=== PATIENT | male | born 2000 | race Caucasian/White ===

== ENCOUNTER 2019-03-13 04:54 | Emergency (ER) | payer OTHER ==
[~2019-03-13] VITALS: Ht 195.5 cm; Wt 72.5 kg
[2019-03-13] MEDS ORDERED: LACTATED RINGERS 1,000 ML IV ONE ×3 (05:04→06:09)
--- NOTE | 2019-03-13 05:10 | ED Abdominal Pain ---
General Chief Complaint: Abdominal/GI Problems Stated Complaint: N/V Source of Information: Patient Exam Limitations: No Limitations (MEGHA HARDEN) History of Present Illness Date Seen by Provider: Mar 13, 2019 Time Seen by Provider: 04:52 Initial Comments Patient presents to ER by private conveyance with chief complaint of moderate to severe abdominal pain all over, nausea and vomiting since 2:00 this morning. He believes that he has food poisoning. He ate chicken wings from [email or web address] at 8:30 last night. His brother also ate the same food but did not become ill. However the day before his brother had food poisoning and was vomiting and went to the doctor's office and got ondansetron. His brothers symptoms have since passed. The patient borrowed a tablet of ondansetron at 3:30 and said it did nothing for his nausea. He was not able to take anything for pain. He does not have any history of medical or surgical problems. He does not routinely take medicines. He says he has allergies to antibiotics but he cannot think of which ones they are right now. He had a bout of diarrhea on the way to the ER. (MEGHA HARDEN) Allergies and Home Medications Allergies Coded Allergies: No Allergy Information Available (Unverified , 03/13/19) pt vomiting, states antibiotics Home Medications Ondansetron 4 Mg Tab.rapdis, 4-8 MG PO Q6H PRN for NAUSEA/VOMITING Prescribed by: MEGHA HARDEN on 03/13/19 0607 Promethazine HCl 25 Mg Tablet, 25 MG PO Q6H PRN for NAUSEA/VOMITING Prescribed by: MEGHA HARDEN on 03/13/19 0607 Patient Home Medication List Home Medication List Reviewed: Yes (MEGHA HARDEN) Review of Systems Review of Systems Constitutional: chills; No diaphoresis; fever (subjective) EENTM: No Eye Pain, No Ear Pain Respiratory: Denies Cough, Denies Shortness of Air Cardiovascular: Denies Chest Pain, Denies Lightheadedness Gastrointestinal: See HPI, Abdominal Pain; Denies Constipated, Denies Diarrhea; Nausea, Vomiting Genitourinary: Denies Burning, Denies Discharge Musculoskeletal: No back pain Skin: No pruritus, No rash Psychiatric/Neurological: Denies Headache, Denies Numbness (MEGHA HARDEN) All Other Systems Reviewed Negative Unless Noted: Yes (MEGHA HARDEN) Past Qxjdoru-Eafvub-Jbbdcn Hx Patient Social History Alcohol Use: Denies Use Recreational Drug Use: No Smoking Status: Never a Smoker Recent Foreign Travel: No Contact w/Someone Who Travel: No (MEGHA HARDEN) Physical Exam Vital Signs Vital Signs - First Documented 03/13/19 05:00 Temp 35.9 Pulse 112 Resp 18 B/P (MAP) 139/89 (106) Pulse Ox 100 (MANAV,JENNY K DO) Vital Signs Capillary Refill : (MEGHA HARDEN) Height/Weight/BMI Height: '" Weight: lbs. oz. kg; BMI Method: General Appearance: WD/WN, mild distress, other (Tall, thin, marfanoid features with pectus excavatum) HEENT: PERRL/EOMI; No pharynx normal (oropharynx is mildly dry) Neck: full range of motion, normal inspection Respiratory: no respiratory distress, no accessory muscle use Cardiovascular: normal peripheral pulses, regular rate, rhythm, tachycardia (100) Peripheral Pulses: 2+ Radial Pulses (R), 2+ Radial Pulses (L) Gastrointestinal: normal bowel sounds; No rebound; tenderness (all 4 quadrants), other (negative for McBurney's point tenderness, Martins's sign or Rovsing sign. No mesenteric signs. If her heel tap tenderness) Extremities: normal range of motion, non-tender, normal capillary refill Neurologic/Psychiatric: alert, normal mood/affect, oriented x 3 Skin: normal color, warm/dry (MEGHA HARDEN) Progress/Results/Core Measures Results/Orders Lab Results Laboratory Tests Test 03/13/19 05:07 03/13/19 07:00 Range/Units White Blood Count 19.8 H 4.3-11.0 10^3/uL Red Blood Count 5.89 H 4.35-5.85 10^6/uL Hemoglobin 17.6 13.3-17.7 G/DL Hematocrit 49 40-54 % Mean Corpuscular Volume 84 80-99 FL Mean Corpuscular Hemoglobin 30 25-34 PG Mean Corpuscular Hemoglobin Concent 36 32-36 G/DL Red Cell Distribution Width 13.5 10.0-14.5 % Platelet Count 368 130-400 10^3/uL Mean Platelet Volume 10.1 7.4-10.4 FL Neutrophils (%) (Auto) 84 H 42-75 % Lymphocytes (%) (Auto) 8 L 12-44 % Monocytes (%) (Auto) 7 0-12 % Eosinophils (%) (Auto) 1 0-10 % Basophils (%) (Auto) 0 0-10 % Neutrophils # (Auto) 16.6 H 1.8-7.8 X 10^3 Lymphocytes # (Auto) 1.6 1.0-4.0 X 10^3 Monocytes # (Auto) 1.5 H 0.0-1.0 X 10^3 Eosinophils # (Auto) 0.1 0.0-0.3 10^3/uL Basophils # (Auto) 0.0 0.0-0.1 10^3/uL Neutrophils % (Manual) 78 % Lymphocytes % (Manual) 6 % Monocytes % (Manual) 5 % Eosinophils % (Manual) 3 % Band Neutrophils 8 % Blood Morphology Comment NORMAL Sodium Level 140 135-145 MMOL/L Potassium Level 3.4 L 3.6-5.0 MMOL/L Chloride Level 106 98-107 MMOL/L Carbon Dioxide Level 18 L 21-32 MMOL/L Anion Gap 16 H 5-14 MMOL/L Blood Urea Nitrogen 13 7-18 MG/DL Creatinine 1.08 0.60-1.30 MG/DL Estimat Glomerular Filtration Rate > 60 BUN/Creatinine Ratio 12 Glucose Level 125 H 70-105 MG/DL Calcium Level 10.2 H 8.5-10.1 MG/DL Corrected Calcium 8.5-10.1 MG/DL Total Bilirubin 0.5 0.1-1.0 MG/DL Aspartate Amino Transf (AST/SGOT) 19 5-34 U/L Alanine Aminotransferase (ALT/SGPT) 21 0-55 U/L Alkaline Phosphatase 102 40-136 U/L Total Protein 8.6 H 6.4-8.2 GM/DL Albumin 5.0 H 3.2-4.5 GM/DL Lipase 23 8-78 U/L Urine Color MOIZ H Urine Clarity CLEAR Urine pH 6.5 5-9 Urine Specific [place] 1.025 H 1.016-1.022 Urine Protein 1+ H NEGATIVE Urine Glucose (UA) NEGATIVE NEGATIVE Urine Ketones 1+ H NEGATIVE Urine Nitrite NEGATIVE NEGATIVE Urine Bilirubin 1+ H NEGATIVE Urine Urobilinogen 0.2 < = 1.0 MG/DL Urine Leukocyte Esterase NEGATIVE NEGATIVE Urine RBC (Auto) NEGATIVE NEGATIVE Urine RBC NONE /HPF Urine WBC RARE /HPF Urine Squamous Epithelial Cells RARE /HPF Urine Crystals PRESENT H /LPF Urine Amorphous Sediment FEW KRISTEN URATES H /LPF Urine Bacteria TRACE /HPF Urine Casts NONE /LPF Urine Mucus MODERATE H /LPF Urine Culture Indicated NO (TAMIKA TOLENTINOA K DO) My Orders Orders - JENNY TOLENTINO DO Lactated Ringers (Lr 1000 Ml Iv Solution (03/13/19 07:14) Ondansetron Injection (Zofran Injectio (03/13/19 07:45) (MANVAJENNY K ) Medications Given in ED Current Medications Medications Dose Ordered Sig/Yo Route Start Time Stop Time Status Last Admin Dose Admin Ketorolac Tromethamine 30 mg ONCE ONCE IVP 03/13/19 05:15 03/13/19 05:16 DC 03/13/19 05:11 30 MG Lactated Ringer's 1,000 ml @ 0 mls/hr Q0M ONCE IV 03/13/19 05:07 03/13/19 05:08 DC 03/13/19 05:09 1,000 MLS/HR Lactated Ringer's 1,000 ml @ 0 mls/hr Q0M ONCE IV 03/13/19 06:09 03/13/19 06:10 DC 03/13/19 06:11 0 MLS/HR Ondansetron HCl 4 mg ONCE ONCE IVP 03/13/19 07:45 03/13/19 07:46 DC 03/13/19 07:47 4 MG Ondansetron HCl 8 mg ONCE ONCE IVP 03/13/19 05:15 03/13/19 05:16 DC 03/13/19 05:11 8 MG Pantoprazole 40 mg ONCE ONCE IV 03/13/19 05:15 03/13/19 05:16 DC 03/13/19 05:19 40 MG (TAMIKA TOLENTINOA Piyush DO) Vital Signs/I&O 03/13/19 03/13/19 03/13/19 05:00 06:00 07:03 Temp 35.9 Pulse 112 61 55 88 65 100 103 Resp 18 B/P (MAP) 139/89 (106) 111/62 (78) 119/61 (80) 114/51 (72) 126/70 (88) 92/42 (59) 107/71 (83) Pulse Ox 100 (JENNY TOLENTINO DO) Progress Progress Note #1: Time: 05:14 Progress Note Patient appears to have viral gastroenteritis and got his brother from yesterday. He would benefit Toradol, Zofran and probably a liter of lactated Ringer's. We'll obtain some labs and reexamine him after our initial interventions. Pantoprazole. He is afebrile now his heart rates up with his likely secondary to pain. Immediately after the Toradol he is already down to 70. Progress Note #2: Time: 05:45 Progress Note Patient denies any history of connective tissue disorders, Marfan's, Ehrler Danlos syndrome. He does not follow with a primary care doctor and recently moved to the area. He is much more calm now and when he falls asleep he immediately sats down to 80%. He does endorse having poor sleep habits, wakefulness at night, feeling tired throughout the day, irritability. Suspect she may have some kind of sleep apnea and have highly suggest him follow-up with primary care doctor to work this up and thinks this is a good idea. His white co unt is up to 19,000 over he is also very dry and has a hemoglobin of 17. Suspect some of this may be some concentration and some from GI distress. His heart rate is still in the 70s and he has otherwise aseptic vital signs. Since his brother got over this and about a day as suspect he will 2. We'll send him out with Zofran, Phenergan and instructions to treat the diarrhea with Imodium if he goes on for more than a day. Progress Note #3: Time: 06:08 Progress Note Orthostatics were positive dipping down to 92/42 on standing. His nausea is under control. He's not had any diarrhea after arrival. We'll give him another bag of lactated Ringer's and getting rest. We have discussed the case with Dr. Tolentino and she will give him fluids so he urinates or until he feels better. (MEGHA HARDEN) Progress Note : Progress Note GIVEN ADDITIONAL FLUIDS AND NAUSEA MEDICATION, NO VOMITING. ORTHOSTATICS AND SYMPTOMS IMPROVED AT DISMISSAL. (JENNY TOLENTINO DO) Departure Impression Primary Impression: Viral gastroenteritis Additional Impression: Dehydration Disposition: HOME, SELF-CARE Condition: Improved Departure-Patient Inst. Decision time for Depature: 07:00 (MEGHA HARDEN) Referrals: NO,LOCAL PHYSICIAN (PCP/Family) Primary Care Physician Patient Instructions: LOCAL PHYSICIAN LIST, Viral Gastroenteritis, Adult (DC) Add. Discharge Instructions: Zofran 1-2 tablets every 6 hours as needed for nausea. Phenergan 1 tablet every 6 hours as needed for nausea. It will cause drowsiness however. Tylenol 1000 mg every 8 hours as needed for pain. Ibuprofen 800 mg every 8 hours as needed for pain. Maalox, Tums, Rolaids as needed for stomach pain. Typically this will resolve within 3-5 days. If it persists for much longer than that then you should follow-up with your primary care doctor. Return to the ER if you are having intractable pain, nausea or fever above 102.5. You need to establish care with a primary care doctor and discuss higher oxygen levels went down when you are sleeping. This could be from obstructive sleep apnea. This can be easily treated and will have far reaching benefits in your life if this is the case. All discharge instructions reviewed with patient and/or family. Voiced understanding. Scripts Promethazine HCl (Promethazine Tablet) 25 Mg Tablet 25 MG PO Q6H PRN for NAUSEA/VOMITING, #10 TAB 0 Refills Prov: MEGHA HARDEN 03/13/19 Ondansetron (Ondansetron Odt) 4 Mg Tab.rapdis 4-8 MG PO Q6H PRN for NAUSEA/VOMITING, #10 TAB 0 Refills Prov: MEGHA HARDEN 03/13/19 MEGHA HARDEN Mar 13, 2019 05:10 JENNY TOLENTINO DO Mar 13, 2019 08:12
[2019-03-13] MEDS ORDERED: ONDANSETRON 4 MG/2 ML (SDV) Z0FRAN IVP ONE ×2 (05:15→07:45)
[2019-03-13] MEDS ORDERED: KETOROLAC 30 MG/ML VIAL IVP ONE (05:15)
[2019-03-13] MEDS ORDERED: PANTOPRAZOLE 40 MG (PROTONIX) VIAL IV ONE (05:15)
[2019-03-13 05:17] LABS: BASOPHILS % (AUTO) 0 % (0-10); EOSINOPHILS # (AUTO) 0.1 10^3/uL (0.0-0.3); EOSINOPHILS % (AUTO) 1 % (0-10); HEMATOCRIT 49 % (40-54); HEMOGLOBIN 17.6 G/DL (13.3-17.7); LYMPHOCYTES # (AUTO) 1.6 X 10^3 (1.0-4.0); LYMPHOCYTES % (AUTO) 8 % (12-44); MEAN CORPUSCULAR HEMOGLOBIN 30 PG (25-34); MEAN CORPUSCULAR HGB CONC 36 G/DL (32-36); MEAN CORPUSCULAR VOLUME 84 FL (80-99); MEAN PLATELET VOLUME 10.1 FL (7.4-10.4); MONOCYTES # (AUTO) 1.5 X 10^3 (0.0-1.0); MONOCYTES % (AUTO) 7 % (0-12); NEUTROPHILS # (AUTO) 16.6 X 10^3 (1.8-7.8); NEUTROPHILS % (AUTO) 84 % (42-75); PLATELET COUNT 368 10^3/uL (130-400); RED CELL DISTRIBUTION WIDTH 13.5 % (10.0-14.5); WHITE BLOOD COUNT 19.8 10^3/uL (4.3-11.0)
[2019-03-13 05:44] LABS: ALANINE AMINOTRANSFERASE 21 U/L (0-55); ALKALINE PHOSPHATASE 102 U/L (40-136); BILIRUBIN,TOTAL 0.5 MG/DL (0.1-1.0); BUN/CREATININE RATIO 12; CALCIUM 10.2 MG/DL (8.5-10.1); CARBON DIOXIDE 18 MMOL/L (21-32); CHLORIDE 106 MMOL/L (98-107); CREATININE SERUM 1.08 MG/DL (0.60-1.30); GFR ESTIMATED > 60; GLUCOSE 125 MG/DL (70-105); LIPASE 23 U/L (8-78); POTASSIUM 3.4 MMOL/L (3.6-5.0); SODIUM 140 MMOL/L (135-145); TOTAL PROTEIN 8.6 GM/DL (6.4-8.2)
[2019-03-13 05:48] LABS: BAND NEUTROPHILS 8 %; EOSINOPHILS % (MANUAL) 3 %; LYMPHOCYTES % (MANUAL) 6 %; MONOCYTES % (MANUAL) 5 %; NEUTROPHILS % (MANUAL) 78 %; RBC MORPH NORMAL
[2019-03-13 06:00] VITALS: BP_SYST 111; BP_SYST 114; BP_SYST 92; BP_DIAS 42; BP_DIAS 51; BP_DIAS 62
[2019-03-13] MEDS ORDERED: ONDA4TAB11 PO (06:07)
[2019-03-13] MEDS ORDERED: PROM25TA14 PO (06:07)
[2019-03-13 07:03] VITALS: BP_SYST 107; BP_SYST 119; BP_SYST 126; BP_DIAS 61; BP_DIAS 70; BP_DIAS 71
[2019-03-13 07:07] LABS: CLARITY,URINE CLEAR; GLUCOSE, URINE (UA) NEGATIVE (NEGATIVE); KETONES,URINE 1+ (NEGATIVE); LEUKOCYTE ESTERASE ,URINE NEGATIVE (NEGATIVE); NITRITE,URINE NEGATIVE (NEGATIVE); PH,URINE 6.5 (5-9); PROTEIN,URINE 1+ (NEGATIVE)
[2019-03-13] MEDS ORDERED: LACTATED RINGERS 1,000 ML IV STA (07:14)
[2019-03-13 07:21] LABS: BACTERIA,URINE TRACE /HPF; COLOR,URINE AMBER; SQUAMOUS EPITHELIAL CELL,UR RARE /HPF; WBC,URINE RARE /HPF
[2019-03-13 07:22] LABS: AMORPHOUS SEDIMENT,UR FEW AMOR URATES /LPF; BILIRUBIN,URINE 1+ (NEGATIVE)
[2019-03-13 08:15] VITALS: BP 117/73
== END 2019-03-13 08:15 | disposition home or self-care (01) ==
LOC: ER 04:56
DX: A08.4 Viral intestinal infection, unspecified (principal); E86.0 Dehydration
CPT/HCPCS: 36415; 80053; 81000; 83690; 85007; 85027; 96361; 96374; 96375; 96376